=== PATIENT | male | born 1975 | race Caucasian/White ===

== ENCOUNTER 2018-07-16 18:54 | Inpatient (IN) | payer MEDICAID ==
[~2018-07-16] VITALS: Ht 172.7 cm; Wt 63.6 kg
[2018-07-16 19:05] VITALS: BP 107/65
--- NOTE | 2018-07-16 19:11 | NUR ---
PT AMBULATES TO BED 4 Addendum: 07/16/18 at 1912 by [facility] BED 3
--- NOTE | 2018-07-16 19:25 | NUR ---
PT BIB SELF C/O ABD PAIN. PT REPORTS SHARP PAIN AT 10/10 X2 DAYS, THAT INCREASES WITH MOVEMENT AND IS TENDER TO TOUCH. PT REPORTS N/V X2 DAYS. ABD IS FLAT, TENDER, TENDER TO TOUCH WITH HYPOACTIVE BOWEL SOUNDS X4 QUADRANTS. PT STATES HIS LAST BM WAS 3 DAYS AGO, PT DENIES DIARRHEA. PT DENIES FEVER, ACHES, AND COUGH. ER MD NOTIFIED OF PT CONDITION. SAFETY PRECAUTIONS IN PLACE, WILL CONTINUE TO MONITOR.
--- NOTE | 2018-07-16 19:28 | NUR ---
Dr. Styles evaluating patient at bedside.
[2018-07-16] MEDS ORDERED: NACL 0.9% 1,000 ML IV ONE (19:37)
[2018-07-16] MEDS ORDERED: KETOROLAC 30 MG/ML VIAL IVP ONE (19:40)
[2018-07-16] MEDS ORDERED: ONDANSETRON 4 MG/2 ML VIAL IVP ONE (19:40)
--- NOTE | 2018-07-16 20:39 | NUR ---
PT IS RESTING IN BED, PT STATES ABD PAIN HAS DECREASED TO 3/10. VSS. SIDE RAILS UPX2, BED IN LOWEST POSITION. WILL CONTINUE TO MONITOR
[2018-07-16 20:56] LABS: BASOPHILS % (AUTO) 0.2 % (0.0-2.0); EOSINOPHILS % (AUTO) 0.2 % (0.0-4.0); HEMATOCRIT 45.6 % (36-52); HEMOGLOBIN 15.1 g/dL (12.0-18.0); LYMPHOCYTES # (AUTO) 0.8 K/uL (2.0-11.5); LYMPHOCYTES % (AUTO) 6.9 % (20.5-51.1); MEAN CORPUSCULAR HEMOGLOBIN 29 pg (27-31); MEAN CORPUSCULAR HGB CONC 33 g/dL (33-37); MEAN CORPUSCULAR VOLUME 87.8 fL (80-94); MONOCYTES # (AUTO) 0.8 K/uL (0.8-1.0); MONOCYTES % (AUTO) 6.8 % (1.7-9.3); NEUTROPHILS % (AUTO) 85.9 % (42.2-75.2); PLATELET COUNT (AUTO) 284 K/uL (140-450); RED BLOOD CELL COUNT(AUTO) 5.19 MIL/uL (4.20-6.10); RED CELL DISTRIBUTION WIDTH 13.8 % (11.6-13.7); WHITE BLOOD COUNT (AUTO) 11.6 K/uL (4.8-10.8)
[2018-07-16 21:20] LABS: ALBUMIN 3.8 g/dL (3.4-5.0); ANION GAP 9.5 (8-16); CREATININE 0.8 mg/dL (0.7-1.3); POTASSIUM 4.5 mmol/L (3.5-5.1); TOTAL BILIRUBIN 0.8 mg/dL (0.0-1.0)
[2018-07-16] MEDS ORDERED: metroNIDAZOLE 500 MG/NS PREMIX 100 ML IV ONE (21:50)
[2018-07-16] MEDS ORDERED: ONDANSETRON 4 MG/2 ML VIAL IM/IVP PRN (22:20)
[2018-07-16] MEDS ORDERED: ACETAMINOPHEN 325 MG TAB PO PRN (22:20)
[2018-07-16] MEDS ORDERED: DOCUSATE SODIUM 100 MG GELCAP PO PRN (22:20)
--- NOTE | 2018-07-16 22:23 | NUR ---
physical therapy technician at bedside.
--- NOTE | 2018-07-16 22:44 | NUR ---
Patient will be admitted to care of DR AGUIAR. Admited to MED/SURG BED 120A [facility]IA [facility] WITH VSS. Belongings list completed. Report to VAHID URIBE.
[2018-07-16 22:50] VITALS: BP 111/74
--- NOTE | 2018-07-16 22:50 | NUR ---
Admitted from ED, with chief complaint of ABDOMINAL PAIN. Pt is 43 y/o ,Male, Awake, Alert and Cooperative, speaks mostly Arabic but understands and speaks Italian. Initial assessment done. Vital signs checked. Pt complaining of RLQ abdominal pain. Will medicate for pain as ordered. Plan of care discussed. Pt verbalized understanding. Pt oriented to call light, bed, phone,television, bathroom, smoking policy, visiting hours, procedures, ID bracelet on. Belongings list checked. Pt remains NPO except meds. Safety ensured. MRSA swab collected.
[2018-07-16 23:27] LABS: PROTHROMBIN TIME 9.6 secs (10.8-13.4)
[2018-07-16 23:34] LABS: CHOL/HDL RATIO 3.6 (1-4.5); FREE T4 (FREE THYROXINE) 1.1 ng/dL (0.76-1.46); MAGNESIUM 2.2 mg/dL (1.8-2.4); PHOSPHORUS 3.3 mg/dL (2.5-4.9); THYROID STIMULATING HORMONE 0.25 uIU/mL (0.34-3.74)
[2018-07-16] MEDS: HYDROcodone/APAP 7.5/325 MG 1 TAB PO PRN (23:38)
[2018-07-16] MEDS: DEXT 5% /NACL 0.9% 1,000 ML IV SCH (23:38)
--- NOTE | 2018-07-17 02:30 | NUR ---
SEEN PT SLEEPING SOUNDLY. CALL LIGHT W/IN REACH.
[2018-07-17 04:45] VITALS: BP 113/66
--- NOTE | 2018-07-17 04:45 | NUR ---
SEEN PT ASLEEP. AWAKEN PT. VITAL SIGNS CHECKED. PT DENIES ANY DISCOMFORT. PT TOOK A SIP OF WATER. PT REMINDED THAT HE'S NOTHING BY MOUTH AND HE CAN ONLY DRINK W/ MEDICATIONS. INSTRUCTED PT THE NEXT TIME HE URINATES, TO CALL THE NURSE BECAUSE URINE SAMPLE IS NEEDED FOR A TEST. PT VERBALIZED UNDERSTANDING. CALL LIGHT W/IN REACH.
--- NOTE | 2018-07-17 06:45 | NUR ---
SEEN PT AWAKE. VISITOR AT BEDSIDE. PT DENIES ANY DISCOMFORT. WILL ENDORSE CARE TO DAYSHIFT NURSE.
[2018-07-17 08:00] VITALS: BP 117/72
[2018-07-17] MEDS ORDERED: PIPER/TAZO 3.375GM/D5W PREMIX 50 ML IV SCH (08:00)
--- NOTE | 2018-07-17 08:05 | NUR ---
PATIENT WAS AWAKE, ALERT. RESPIRATION EVEN, UNLABOR ON ROOM AIR. SKIN DRY AND WARM. IV PATENT AND INTACT. COMPLAINED OF ABDOMINAL PAIN 4/10, WILL MEDICATE PER ORDER. PLAN OF CARE WAS DISCUSSED WITH PATIENT. BED AT LOW POSITION, SIDE RAILS UP. CALL LIGHT WITHIN REACH
[2018-07-17] MEDS: HYDROcodone/APAP 7.5/325 MG 1 TAB PO PRN ×3 (08:26→20:58)
[2018-07-17] MEDS ORDERED: PNEUMOCOCCAL VACCINE 23 MCG/0.5 ML VIAL IMVAC SCH (09:00)
--- NOTE | 2018-07-17 10:30 | NUR ---
PATIENT TEMP 101.1 AFTER TYLENOL WAS GIVEN. ICE PACKS WERE GIVEN, WILL CONTINUE TO MONITOR
[2018-07-17] MEDS ORDERED: KETOROLAC 15 MG/ML VIAL IVP PRN (11:30)
--- NOTE | 2018-07-17 11:30 | NUR ---
PATIENT TEMP WAS 99.1. ICE PACK WAS CONTINUED TO APPLY. PATIENT WAS EXPLAINED URINE SAMPLE NEEDED TO BE COLLECTED. URINE CUP WAS PROVIDED. PATIENT VERBALIZED UNDERSTANDING
--- NOTE | 2018-07-17 14:30 | NUR ---
PATIENT WAS AWAKE, ALERT. RESPIRATION EVEN, UNLABOR ON ROOM AIR. DR. DUNAWAY WAS AT BEDSIDE, RISKS OF SURGERY WAS EXPLAINED TO PATIENT. PATIENT VERBALIZED UNDERSTANDING. SURGERY CONSENT WAS OBTAINED.
--- NOTE | 2018-07-17 15:00 | NUR ---
PATIENT COMPLAINED OF ABDOMINAL PAIN 6/, MED WAS GIVEN PER ORDER.
[2018-07-17] MEDS: PIPER/TAZO 3.375GM/D5W PREMIX 50 ML IV SCH ×2 (15:03→22:07)
[2018-07-17 16:00] VITALS: BP 106/63
--- NOTE | 2018-07-17 16:15 | NUR ---
PATIENT WAS AWAKE, ALERT. RESPIRATION EVEN, UNLABOR ON ROOM AIR. PATIENT STATED PAIN LEVEL WAS REDUCING. VS WAS STABLE. TEMP 98.7. NO DISTRESS NOTED AT THIS TIME. CALL LIGHT WITHIN REACH
[2018-07-17] MEDS: DEXT 5% /NACL 0.9% 1,000 ML IV SCH ×2 (16:24→22:00)
--- NOTE | 2018-07-17 17:27 | NUR ---
PATIENT WAS TRANSFERRED TO OR. PATIENT IS STABLE AT THIS TIME
[2018-07-17] MEDS ORDERED: BUPIVACAINE-MPF/EPI 0.25% 30 ML VIAL INJ ONE (18:08)
[2018-07-17] MEDS ORDERED: HYDROmorphone PFS 2 MG/ML SYR ONE (18:20)
[2018-07-17] MEDS ORDERED: fentaNYL 0.05 MG/ML VIAL ONE (18:20)
[2018-07-17] MEDS ORDERED: ONDANSETRON 4 MG/2 ML VIAL IVP PRN (18:20)
[2018-07-17] MEDS ORDERED: PHENYLEPHRINE 10 MG/ML VIAL ONE (18:20)
[2018-07-17] MEDS ORDERED: SUCCINYLCHOLINE CHLORIDE 200 MG/10 ML VIAL IVP ONE (18:20)
[2018-07-17] MEDS ORDERED: KETOROLAC 30 MG/ML VIAL ONE (18:20)
[2018-07-17] MEDS ORDERED: HYDROmorphone 1 MG/ML AMP IVP PRN (18:20)
[2018-07-17] MEDS ORDERED: ROCURONIUM 50 MG/5 ML VIAL IV ONE (18:20)
[2018-07-17] MEDS ORDERED: DEXAMETHASONE 4 MG/ML VIAL ONE (18:20)
[2018-07-17] MEDS ORDERED: ONDANSETRON 4 MG/2 ML VIAL ONE (18:20)
[2018-07-17] MEDS ORDERED: PROPOFOL 200 MG/20 ML VIAL IV ONE (18:20)
[2018-07-17] MEDS ORDERED: DESFLURANE 240 ML BTL INH ONE (18:20)
[2018-07-17] MEDS ORDERED: GLYCOPYRROLATE 0.2 MG/ML VIAL ONE (18:20)
[2018-07-17] MEDS: BUPIVACAINE-MPF/EPI 0.5% 30 ML VIAL INJ ONE ×2 (18:53→19:15)
--- NOTE | 2018-07-17 19:27 | NUR ---
ENDORSEMENT GIVEN TO CORK SLABS SAWYER NURSE. PATIENT IS STABLE AT THIS TIME
--- NOTE | 2018-07-17 19:27 | NUR ---
REPORT RECEIVED FROM RONY BARNES, PATIENT IN OR, SCHEDULED TO HAVE APPENDECTOMY. WILL ASSESS ONCE PATIENT IS BACK ON UNIT.
[2018-07-17] MEDS: HYDROmorphone PFS 2 MG/ML SYR ONE ×2 (20:02→20:12)
--- NOTE | 2018-07-17 20:33 | NUR ---
PATIENT ARRIVED FROM OR, RECEIVED BESIDE REPORT FROM DIRECTOR TELEMETRYRONY STEPHENSON, PATIENT HAD OPEN APPENDECTOMY WITH DRAINAGE OF ABSCESS AND LAVAGE. V/S TAKEN BP 110/65 HR 98 RR 16 EVEN, O2SAT 99% RA, TEMP 98.9 F, PATIENT CLAIMS TO HAVE 6/10 PAIN. OFFERED NORCO PATIENT SAID OKAY. WILL ASSESS IF PATIENT CAN SWALLOW ICE. PLACED HOB AT 30 DEGREES. EXPLAINED PLAN OF CARE, EXPLAINED THAT WE NEED URINE FOR UA AND CULTURE, PATIENT SAID OKAY, BED IN LOWEST POSITION, CALL LIGHT WITHIN REACH, WILL CONTINUE TO MONITOR V/S.
--- NOTE | 2018-07-17 20:48 | NUR ---
BP 113/65, HR 96 RR 16 99% O2SAT ON RA, 98.9 F. PATIENT HAS PAIN 6/10 IN ABDOMEN AT SURGICAL SITE.
--- NOTE | 2018-07-17 20:58 | NUR ---
PATIENT ABLE TO SWALLOW ICE, ADMINISTERED NORCO ACCORDING TO MD ORDER. HOB AT 30 DEGREES, V/S CONTINUE TO BE STABLE.
--- NOTE | 2018-07-17 21:03 | NUR ---
BP 115/65 HR 87 RR 14 EVEN 98% O2SAT ON RA, TEMP 98.6, PAIN 6/10.
--- NOTE | 2018-07-17 21:33 | NUR ---
V/S CONTINUE TO REMAIN STABLE BP 113/71 HR 90 RR 14 98% RA 98.5 F. PATIENT ASLEEP.
--- NOTE | 2018-07-17 23:52 | NUR ---
PATIENT ASLEEP IN BED, V/S TAKEN, DENIES PAIN, CALL LIGHT WITHIN REACH.
[2018-07-17 23:59] VITALS: BP 118/70
--- NOTE | 2018-07-18 00:46 | NUR ---
PATIENT C/O PAIN 01/03 WILL MEDICATE ACCORDING TO MD ORDER.
[2018-07-18] MEDS: HYDROcodone/APAP 7.5/325 MG 1 TAB PO PRN ×3 (00:58→22:12)
--- NOTE | 2018-07-18 02:06 | NUR ---
REMINDED PATIENT OF NEEDED URINE SAMPLE AND NOT TO DISPOSE OF URINE NEXT TIME, PATIENT STATED OKAY.
--- NOTE | 2018-07-18 03:45 | NUR ---
PATIENT AMBULATED TO RESTROOM, STEADY GAIT, URINE COLLECTED, ASSISTED BACK INTO IN BED, WILL CONTINUE TO MONITOR.
--- NOTE | 2018-07-18 03:57 | NUR ---
CLEAN CATCH URINE COLLECTED, WILL SEND TO LAB.
[2018-07-18 04:23] LABS: BILIRUBIN,URINE NEGATIVE (NEGATIVE); BLOOD, URINE 1+ (NEGATIVE); COLOR,URINE YELLOW (YELLOW); LEUKOCYTE ESTERASE ,URINE NEGATIVE (NEGATIVE); NITRITE, URINE NEGATIVE (NEGATIVE); UGLUCOSE NEGATIVE (NEGATIVE)
[2018-07-18 04:39] LABS: APPEARANCE,URINE SLIGHTLY HAZY (CLEAR)
[2018-07-18 04:40] LABS: RBC,URINE 3-10 (FEW) /HPF (0-5); WBC,URINE 20-60 /HPF (0-5)
[2018-07-18] MEDS: PIPER/TAZO 3.375GM/D5W PREMIX 50 ML IV SCH ×3 (06:30→22:12)
[2018-07-18 06:53] LABS: HEMATOCRIT 38.4 % (36-52); HEMOGLOBIN 12.5 g/dL (12.0-18.0); LYMPHOCYTES # (AUTO) 0.7 K/uL (2.0-11.5); LYMPHOCYTES % (AUTO) 5.9 % (20.5-51.1); MEAN CORPUSCULAR HEMOGLOBIN 29 pg (27-31); MEAN CORPUSCULAR HGB CONC 33 g/dL (33-37); MONOCYTES % (AUTO) 9.1 % (1.7-9.3); NEUTROPHILS # (AUTO) 9.7 K/uL (1.8-7.7); PLATELET COUNT (AUTO) 225 K/uL (140-450); RED BLOOD CELL COUNT(AUTO) 4.36 MIL/uL (4.20-6.10); RED CELL DISTRIBUTION WIDTH 13.5 % (11.6-13.7); WHITE BLOOD COUNT (AUTO) 11.4 K/uL (4.8-10.8)
[2018-07-18 07:24] LABS: ANION GAP 7.9 (8-16); CARBON DIOXIDE 31.1 mmol/L (21-32); CREATININE 0.8 mg/dL (0.7-1.3)
--- NOTE | 2018-07-18 07:25 | NUR ---
RECEIVED PT REPORT FROM METALIZER NURSE. PT IS ALERT AND AWAKE IN BED, NO S/S OF ACUTE DISTRESS OR SOB. PT C/O MILD POSTOPERATIVE PAIN IN THE ABDOMEN. PT IS ON ROOM AIR. SURGICAL ABD INCISION IS COVERED BY A DRY DRESSING, SKIN IS OTHERWISE INTACT. IV SITE NOTED ON R AC, 20 GAUGE, INFUSING D5NS 100 ML/HR. CALL LIGHT IS WITHIN REACH. WILL CONTINUE TO MONITOR.
[2018-07-18 07:34] LABS: MAGNESIUM 1.9 mg/dL (1.8-2.4); PHOSPHORUS 3.6 mg/dL (2.5-4.9)
--- NOTE | 2018-07-18 07:35 | NUR ---
ENDORSED PATIENT TO DAY SHIFT NURSE PATIENT STABLE.
[2018-07-18 08:00] VITALS: BP 94/52
[2018-07-18] MEDS: MORPHINE SULFATE 4 MG/ML SYR IVP PRN ×2 (09:16→14:13)
--- NOTE | 2018-07-18 09:25 | NUR ---
PT C/O 02/02 POSTSURGICAL ABD PAIN. ADMINISTERED PRN IV MORPHINE 1 MG AT 09:20, AFTER PAIN ONLY BECAME WORSE AFTER TAKING PO NORCO EARLIER THIS AM. WILL CONTINUE TO MONITOR.
[2018-07-18] MEDS: DEXT 5% /NACL 0.9% 1,000 ML IV SCH (09:56)
--- NOTE | 2018-07-18 10:15 | NUR ---
ASSISTED PT TO THE BATHROOM. PT WAS ABLE TO AMBULATE STEADILY TO AND FROM BATHROOM.
--- NOTE | 2018-07-18 11:19 | NUR ---
PT SLEEPING COMFORTABLY AT THIS TIME. WILL CONTINUE TO MONITOR. CALL LIGHT IS WITHIN PT'S REACH.
[2018-07-18] MEDS ORDERED: NACL 0.9% 1,000 ML IV SCH (11:40)
--- NOTE | 2018-07-18 13:24 | NUR ---
ASSISTED PT TO BATHROOM. PT ASKED TO HAVE SCD'S TAKEN OFF BECAUSE HE FEELS LIKE THEY ARE CONTRIBUTING TO HIS PAIN. SCD'S REMOVED PER PT'S REQUEST. Addendum: 07/18/18 at 1450 by Dina Atkins RN PT REPORTS RELIEVED PAIN AFTER SCD'S WERE REMOVED.
--- NOTE | 2018-07-18 13:31 | NUR ---
PT HAVING KIDNEY US AT THIS TIME.
[2018-07-18 15:46] VITALS: BP 100/54
[2018-07-18] MEDS ORDERED: MORPHINE SULFATE 4 MG/ML SYR IVP PRN (16:40)
--- NOTE | 2018-07-18 16:42 | NUR ---
PT C/O SEVERE POSTSURGICAL ABD PAIN. HE SAYS THAT THE MORPHINE GIVEN LAST TIME DID NOT HELP MUCH. DR ZAMBRANO NOTIFIED.
[2018-07-18] MEDS ORDERED: MORPHINE SULFATE 2 MG/ML SYR ONE (17:52)
--- NOTE | 2018-07-18 17:59 | NUR ---
PT SEEN BY DR DUNAWAY. WANTS TO DC PT'S IV FLUIDS, START REGULAR DIET TOMORROW AT BREAKFAST, AND FOR RN TO CHANGE PT'S ABD DRESSING TOMORROW. IF THERE IS NO DRAINAGE FROM ABD INCISION, TO LEAVE GRIFFIN.
--- NOTE | 2018-07-18 19:20 | NUR ---
PT ENDORSED TO SOFT METALS ENGRAVER HAND IN STABLE CONDITION.
--- NOTE | 2018-07-18 19:21 | NUR ---
RECEIVED BEDSIDE REPORT. PT IS A&OX4. RESPIRATIONS ARE EQUAL AND UNLABORED. PT IS HAVING SOME ABDOMINAL PAIN. PER NURSE PT IS RECEIVING MORPHINE Q3H. WILL FOLLOW UP WITH PAIN MEDS. PS IS S/P OPEN APPENDECTOMY DRESSING IS CLEAN DRY AND INTACT. PT IS PACING GAS. HE IS AMBULATING AND TOLERATED CLEAR LIQUID DIET FOR DINNER. PT IS REQUESTING FOOD. ORDER FOR REGULAR DIET AT BREAKFAST TOMORROW 07/09/18. SALINE LOCK RAC 20G. PLAN OF CARE DISCUSSED WITH PATIENT. CALL LIGHT WITHIN REACH.
--- NOTE | 2018-07-18 20:38 | NUR ---
DUE MEDICATIONS GIVEN AND MORPHINE ADMINISTERED PER ORDERS. PT TOLERATED WELL. WILL CONTINUE TO MONITOR.
--- NOTE | 2018-07-18 22:12 | NUR ---
ZOSYN INFUSING PER ORDERS. NORCO ADMINISTERED FOR PAIN. CALL LIGHT WITHIN REACH. WILL CONTINUE TO MONITOR.
[2018-07-18 23:44] VITALS: BP 104/58
--- NOTE | 2018-07-18 23:49 | NUR ---
VITAL SIGNS ARE WITHIN NORMAL LIMITS. PT STATES NORCO WAS EFFECTIVE. ALL NEEDS MET AT THIS TIME. CALL LIGHT WITHIN REACH. WILL CONTINUE TO MONITOR.
--- NOTE | 2018-07-19 00:52 | NUR ---
PT SLEEPING COMFORTABLY IN BED. RESPIRATIONS ARE EQUAL AND UNLABORED. CALL LIGHT WITHIN REACH.WILL CONTINUE TO MONITOR.
--- NOTE | 2018-07-19 02:30 | NUR ---
PT SLEEPING COMFORTABLY. RESPIRATIONS ARE EQUAL AND UNLABORED. CALL LIGHT WITHIN REACH.
--- NOTE | 2018-07-19 04:30 | NUR ---
PT IS ASLEEP. RESPIRATIONS ARE EQUAL AND UNLABORED. CALL LIGHT WITHIN REACH.
[2018-07-19] MEDS: PIPER/TAZO 3.375GM/D5W PREMIX 50 ML IV SCH (06:01)
--- NOTE | 2018-07-19 06:01 | NUR ---
ZOSYN INFUSING PER ORDERS. ASSISTED PT TO TURN IN BED. PT TOLERATED WELL. PT STATES PAIN IS TOLERABLE AT THIS TIME. CALL LIGHT WITHIN REACH. WILL CONTINUE TO MONITOR.
[2018-07-19 07:12] LABS: BASOPHILS % (AUTO) 0.3 % (0.0-2.0); EOSINOPHILS # (AUTO) 0.1 K/uL (0-0.4); EOSINOPHILS % (AUTO) 0.6 % (0.0-4.0); HEMATOCRIT 38.3 % (36-52); HEMOGLOBIN 12.8 g/dL (12.0-18.0); LYMPHOCYTES % (AUTO) 11.6 % (20.5-51.1); MEAN CORPUSCULAR HEMOGLOBIN 29 pg (27-31); MEAN CORPUSCULAR HGB CONC 33 g/dL (33-37); MEAN CORPUSCULAR VOLUME 86.9 fL (80-94); MONOCYTES # (AUTO) 0.8 K/uL (0.8-1.0); MONOCYTES % (AUTO) 8.6 % (1.7-9.3); NEUTROPHILS # (AUTO) 6.9 K/uL (1.8-7.7); NEUTROPHILS % (AUTO) 78.9 % (42.2-75.2); PLATELET COUNT (AUTO) 258 K/uL (140-450); RED BLOOD CELL COUNT(AUTO) 4.41 MIL/uL (4.20-6.10); RED CELL DISTRIBUTION WIDTH 13.4 % (11.6-13.7); WHITE BLOOD COUNT (AUTO) 8.7 K/uL (4.8-10.8)
[2018-07-19 07:20] LABS: MAGNESIUM 1.9 mg/dL (1.8-2.4); PHOSPHORUS 2.2 mg/dL (2.5-4.9)
--- NOTE | 2018-07-19 07:20 | NUR ---
ENDORSED PT TO DAY SHIFT. PT IN STABLE CONDITION.
--- NOTE | 2018-07-19 07:25 | NUR ---
RECEIEVD PT REPORT FROM SEED SPECIALIST NURSE. PT IS AWAKE AND AND ALERT IN BED. NO S/S OF ACUTE DISTRESS NOTED. IV SITE NOTED ON R AC, 20 GAUGE, SALINE LOCK. PT IS ON A REGULAR DIET. PT ON ROOM AIR, SKIN INTACT. CALL LIGHT WITHIN REACH. WILL CONTINUE TO MONITOR.
[2018-07-19 08:00] VITALS: BP 103/68
[2018-07-19] MEDS ORDERED: DOCU-299 PO (08:35)
[2018-07-19] MEDS ORDERED: METR500T1 PO (08:35)
[2018-07-19] MEDS ORDERED: ACET-9529 PO (08:35)
[2018-07-19] MEDS ORDERED: LEVO750T2 PO (08:35)
[2018-07-19] MEDS: HYDROcodone/APAP 7.5/325 MG 1 TAB PO PRN (08:38)
[2018-07-19 09:23] LABS: ANION GAP 12.1 (8-16); CARBON DIOXIDE 26.8 mmol/L (21-32); CREATININE 0.8 mg/dL (0.7-1.3); POTASSIUM 3.9 mmol/L (3.5-5.1)
--- NOTE | 2018-07-19 10:15 | NUR ---
ASSISTED PT TO BATHROOM. PT STILL HAVING PAIN WHEN GETTING UP FROM THE BED, BUT HIS GAIT IS STEADY.
--- NOTE | 2018-07-19 10:51 | NUR ---
CHANGED PT'S INCISION DRESSING PER ORDER. VERY MINIMAL SEROSANGUINEOUS DRAINAGE NOTED. PICTURE OF THE INCISION TAKEN.
--- NOTE | 2018-07-19 11:45 | NUR ---
PT HAS DISCHARGED. DISCHARGE INSTRUCTIONS AND PRESCRIPTIONS GIVEN. PT AND HIS FRIEND VERBALIZED UNDERSTANDING OF DISCHARGE TEACHING. SIGNATURES OBTAINED. IV SITE DC'D, WRIST BAND REMOVED. PT RECEIVED THE PNEUMOVAX AT DISCHARGE. PT LEFT WITH ALL HIS BELONGINGS IN STABLE CONDITION VIA PRIVATE VEHICLE WITH A FRIEND.
== END 2018-07-19 11:40 | disposition home or self-care (01) | DRG 710 ==
LOC: MED 18:54 → MTU 22:19
PROVIDERS: ADMIT General Practice; ATTEND General Practice
PROC: 3E1M38Z Irrigation of Peritoneal Cavity using Irrigating Substance, Percutaneous Approach (ICD-10-PCS; 2018-07-17)
PROC: 0DTJ0ZZ Resection of Appendix, Open Approach (ICD-10-PCS; 2018-07-17)
PROC: 0W9H0ZZ Drainage of Retroperitoneum, Open Approach (ICD-10-PCS; principal; 2018-07-17 17:00)
PROC: 3E0234Z Introduction of Serum, Toxoid and Vaccine into Muscle, Percutaneous Approach (ICD-10-PCS; 2018-07-19)
DX: A41.9 Sepsis, unspecified organism (principal); K35.33 Acute appendicitis with perforation, localized peritonitis, and gangrene, with abscess; Z60.2 Problems related to living alone; F17.210 Nicotine dependence, cigarettes, uncomplicated; R73.9 Hyperglycemia, unspecified; E78.2 Mixed hyperlipidemia; Z23 Encounter for immunization; E05.80 Other thyrotoxicosis without thyrotoxic crisis or storm
CPT/HCPCS: 36415; 71045; 76770; 80048; 80053; 81001; 82150; 83036; 83690; 83735; 83880; 84100; 84436; 84439; 84443; 84479; 84484; 85025; 85610; 85730; 87040; 87070; 87075; 87081; 87086; 87186; 87205; 88304; 90732; 93005; 96361; 96365; 96375; 99285; J0330; J1100; J1170; J1644; J1885; J2270; J2370; J2405; J2543; J2704; J3010; J3490; J7030; J7042; Q0092

== ENCOUNTER 2018-07-22 16:33 | Emergency (ER) | payer MEDICAID ==
[~2018-07-22] VITALS: Ht 180.3 cm; Wt 61.8 kg
[~2018-07-22 16:33] MED LIST: ACET-9529 PO; DOCU-299 PO; LEVO750T2 PO; METR500T1 PO
[2018-07-22 16:48] VITALS: BP 107/63
--- NOTE | 2018-07-22 17:06 | NUR ---
Patient ambulated to bed 12. RN evaluating patient at bedside.
--- NOTE | 2018-07-22 17:10 | NUR ---
43 YO M BIB FAMILY FOR ABD PAIN S/P APPENDICITIS JUL 17, 2018, DR HARLEY. PT STATES HE HAS SOME PAIN AND WAS UNABLE TO FILL HIS NORCO PRESCRIPTION AND IS IN 10/10 PAIN AT SURGICAL SITE. DENIES FEVERS, N/V. SITE APPEARS TO BE HEALING WELL. VSS. BED DOWN, BEDRAIL UP X 1, ER MD AWARE AND NOTIFIED OF PT STATUS. HX APPENDICITIS RX METRONIDAZOLE, LEVOFLOXACIN, PT UNABLE O FILL HIS NORCO PRESCRIPTION IT WAS UNAVILABLE
--- NOTE | 2018-07-22 17:50 | NUR ---
Patient being evaluated by physician at bedside.
--- NOTE | 2018-07-22 17:58 | NUR ---
X-RAY AT BEDSIDE
[2018-07-22] MEDS ORDERED: MORPHINE SULFATE 4 MG/ML SYR IM ONE (19:00)
--- NOTE | 2018-07-22 19:25 | NUR ---
PT STATES TO FEELING MUCH BETTER AFTER PAIN MEDICATION. 4/10 PAIN AT THIS TIME. DRESSING IS DRY; NO REDNESS OR SWELLING NOTED AROUND DRESSING NOTED.
--- NOTE | 2018-07-22 19:45 | NUR ---
Patient discharged with v/s stable. Written and verbal after care instructions given and explained. Patient alert, oriented and verbalized understanding of instructions. Ambulatory with steady gait. ID band removed. Patient advised to follow up with PMD. Rx of Tylenol given. Pt D/C by Dr. Zhang.
[2018-07-22 20:00] VITALS: BP 110/65
== END 2018-07-22 19:45 | disposition home or self-care (01) ==
LOC: MED 16:33
DX: G89.18 Other acute postprocedural pain (principal); Z79.899 Other long term (current) drug therapy
CPT/HCPCS: 81002; 96372; 99283; J2270